=== PATIENT | male | born 2000 | race Two or more races ===

== ENCOUNTER → 2024-08-30 | Outpatient (CLI) | payer OTHER | LOC: M WHC 08:13 | DX: R74.8 Abnormal levels of other serum enzymes (principal); K76.0 Fatty (change of) liver, not elsewhere classified; R16.0 Hepatomegaly, not elsewhere classified ==

== ENCOUNTER → 2025-01-28 | Outpatient (CLI) | payer OTHER | LOC: M PLARAD 14:30 | PROVIDERS: ATTEND Physician Assistant Surgical | DX: M46.1 Sacroiliitis, not elsewhere classified (principal) ==